=== PATIENT | female | born 1970 | race Caucasian/White ===

== ENCOUNTER 2017-02-08 13:59 | Emergency (ER) | payer BC ==
[~2017-02-08] VITALS: Ht 167.6 cm; Wt 59.9 kg
[2017-02-08] MEDS ORDERED: BENZONATATE 100 MG CAPSULE PO ONE (15:00)
[2017-02-08] MEDS ORDERED: AMPH10CA6 PO (15:04)
[2017-02-08 15:22] LABS: BLOOD UREA NITROGEN 13 mg/dL (7-18)
[2017-02-08 15:23] LABS: ASPARTATE AMINO TRANSFERASE 12 U/L (15-37)
[2017-02-08] MEDS ORDERED: ALBUTEROL SULFATE 2.5 MG/3 ML NPPB ONE (15:30)
[2017-02-08] MEDS ORDERED: ALBUTEROL SULFATE 2.5 MG/3 ML ONE (15:31)
[2017-02-08 16:27] LABS: DIFF TOTAL CELLS COUNTED 100 CELL DIFF
[2017-02-08 16:30] LABS: VERIFY COUNTS? YES
[2017-02-08] MEDS ORDERED: CEFTRIAXONE PMX 1GM/50ML 50 ML IVPB ONE (17:00)
[2017-02-08] MEDS ORDERED: KETOROLAC 30 MG/1 ML IVPush ONE (17:00)
[2017-02-08] MEDS ORDERED: SODIUM CHLORIDE 0.9% 1,000ML IVBOLUS ONE (17:00)
[2017-02-08] MEDS ORDERED: KETOROLAC 30 MG/1 ML ONE (17:17)
[2017-02-08] MEDS ORDERED: CEFTRIAXONE PMX 1GM/50ML 50 ML ONE (17:17)
[2017-02-08 18:15] VITALS: BP 108/57
== END 2017-02-08 18:25 | disposition home or self-care (01) ==
LOC: ED 17:38
DX: J18.9 Pneumonia, unspecified organism (principal); D72.829 Elevated white blood cell count, unspecified
CPT/HCPCS: 36415; 71250; 80053; 85025; 86635; 87040; 87070; 87102; 87205; 93005; 94640; 96365; 96375; 99285; J0696; J1885; J7030; J7613

== ENCOUNTER 2017-02-15 09:04 | Inpatient (IN) | payer BC ==
[~2017-02-15] VITALS: Ht 167.6 cm; Wt 60.0 kg
[~2017-02-15 09:04] MED LIST: AMPH10CA6 PO
[2017-02-15] MEDS ORDERED: AZEL23SP INH (09:30)
[2017-02-15] MEDS ORDERED: AMOX1TAB12 PO (09:30)
[2017-02-15] MEDS ORDERED: FLUC200T4 PO (09:30)
[2017-02-15] MEDS ORDERED: BENZ200C40 PO (09:30)
[2017-02-15] MEDS ORDERED: ALBU8.5H3 INH (09:30)
[2017-02-15] MEDS: ALBUTEROL/IPRATROPIUM 2.5MG/0.5MG, 3 ML NPPB SCH ×2 (09:55→10:07)
[2017-02-15] MEDS ORDERED: ALBUTEROL/IPRATROPIUM 2.5MG/0.5MG, 3 ML ONE ×3 (09:56→18:59)
[2017-02-15] MEDS ORDERED: SODIUM CHLORIDE FLUSH 10ML SYR IVF ONE (10:00)
[2017-02-15 10:32] LABS: ASPARTATE AMINO TRANSFERASE 15 U/L (15-37); BLOOD UREA NITROGEN 11 mg/dL (7-18)
[2017-02-15 10:43] LABS: DIFF TOTAL CELLS COUNTED 100 CELL DIFF
[2017-02-15] MEDS ORDERED: ONDANSETRON 2MG/ML, 2ML ONE (10:49)
[2017-02-15] MEDS ORDERED: MORPHINE SULFATE 4 MG/ML, 1ML ONE ×2 (10:49→13:04)
[2017-02-15] MEDS: MORPHINE SULFATE 4 MG/ML, 1ML IVPush PRN ×2 (10:53→13:06)
[2017-02-15] MEDS ORDERED: ONDANSETRON 2MG/ML, 2ML IVPush ONE (11:00)
[2017-02-15 11:10] LABS: VERIFY COUNTS? YES
[2017-02-15] MEDS ORDERED: SODIUM CHLORIDE 0.9% 1,000ML IVBOLUS ONE ×2 (12:00→14:00)
[2017-02-15] MEDS ORDERED: LEVOFLOXACIN/PMX 750MG/150ML 150 ML ONE (12:22)
[2017-02-15] MEDS ORDERED: LEVOFLOXACIN/PMX 750MG/150ML 150 ML IV ONE (12:30)
[2017-02-15] MEDS ORDERED: LABETALOL 5MG/ML, 20ML IVPush PRN (14:30)
[2017-02-15] MEDS ORDERED: MORPHINE SULFATE 4 MG/ML, 1ML IVPush PRN (14:30)
[2017-02-15] MEDS: ENOXAPARIN 40 MG/0.4 ML SQ SCH (14:30)
[2017-02-15] MEDS ORDERED: LORazepam 1MG TABLET PO PRN (14:30)
[2017-02-15] MEDS ORDERED: HYDROcodone/APAP 5/325 TABLET PO PRN (14:30)
[2017-02-15] MEDS ORDERED: DOCUSATE 100 MG CAPSULE PO PRN (14:30)
[2017-02-15] MEDS ORDERED: ONDANSETRON 2MG/ML, 2ML IVPush PRN (14:30)
[2017-02-15] MEDS ORDERED: VANCOMYCIN PER PHARMACY MC PRN (14:30)
[2017-02-15] MEDS ORDERED: BISACODYL 10 MG SUPP PR PRN (14:30)
[2017-02-15] MEDS ORDERED: POLYETHYLENE GLYCOL 17 GM PACKET PO PRN (14:30)
[2017-02-15] MEDS ORDERED: ONDANSETRON ODT 4 MG PO PRN (14:30)
[2017-02-15] MEDS ORDERED: GUAIFENESIN/DM 100-10MG, 5ML UDC PO PRN (14:30)
[2017-02-15] MEDS ORDERED: VANCOMYCIN 1,200 MG in SODIUM CHLORIDE 0.9% 250 ML IV SCH (15:00)
[2017-02-15] MEDS ORDERED: PHARMACOKINETIC MONITORING MC PRN (15:00)
[2017-02-15] MEDS ORDERED: ALBUTEROL SULFATE 2.5 MG/3 ML ONE (15:18)
[2017-02-15] MEDS: PIPERACILLIN/TAZO/PMX 4.5GM 100 ML IV SCH ×2 (15:48→22:22)
[2017-02-15] MEDS: methylPREDNISolone SOD SUCC 125 MG/2 ML IVPush SCH ×2 (15:49→22:22)
[2017-02-15] MEDS: ACETAMINOPHEN 325 MG TABLET PO PRN (15:52)
[2017-02-15] MEDS ORDERED: GUAIFENESIN 200 MG TABLET PO SCH (16:00)
[2017-02-15 16:05] LABS: HCG UR OBC PASS
[2017-02-15] MEDS: VANCOMYCIN 1,200 MG in SODIUM CHLORIDE 0.9% 250 ML IV SCH (18:08)
[2017-02-15 18:24] LABS: ABG COLLECTION SITE RIGHT RADIAL; COLLATERAL CIRCULATION TESTING NORMAL
[2017-02-15] MEDS: ALBUTEROL SULFATE 2.5 MG/3 ML NPPB SCH (20:00)
[2017-02-15 20:54] VITALS: BP 95/60
[2017-02-15] MEDS: SODIUM CHLORIDE 0.9% 1,000 ML IV SCH (23:22)
[2017-02-16 02:35] VITALS: BP 101/60
[2017-02-16] MEDS: PIPERACILLIN/TAZO/PMX 4.5GM 100 ML IV SCH ×4 (04:36→23:43)
[2017-02-16] MEDS: methylPREDNISolone SOD SUCC 125 MG/2 ML IVPush SCH ×4 (04:36→22:39)
[2017-02-16 05:07] LABS: BLOOD UREA NITROGEN 10 mg/dL (7-18)
[2017-02-16] MEDS: VANCOMYCIN 1,200 MG in SODIUM CHLORIDE 0.9% 250 ML IV SCH ×2 (06:04→18:14)
[2017-02-16] MEDS: ACETAMINOPHEN 325 MG TABLET PO PRN (06:19)
[2017-02-16] MEDS: ALBUTEROL SULFATE 2.5 MG/3 ML NPPB SCH ×4 (06:55→19:34)
[2017-02-16 07:56] VITALS: BP 97/55
[2017-02-16 08:26] VITALS: BP_SYST 94; BP_SYST 95; BP_DIAS 53; BP_DIAS 54
[2017-02-16] MEDS: SODIUM CHLORIDE 0.9% 1,000 ML IV SCH (12:00)
[2017-02-16 13:59] VITALS: BP 94/58
[2017-02-16] MEDS: ENOXAPARIN 40 MG/0.4 ML SQ SCH (14:18)
[2017-02-17] MEDS: methylPREDNISolone SOD SUCC 125 MG/2 ML IVPush SCH ×3 (05:25→22:56)
[2017-02-17] MEDS: PIPERACILLIN/TAZO/PMX 4.5GM 100 ML IV SCH ×3 (05:26→17:53)
[2017-02-17] MEDS: SODIUM CHLORIDE 0.9% 1,000 ML IV SCH (05:27)
[2017-02-17 06:01] LABS: BLOOD UREA NITROGEN 14 mg/dL (7-18)
[2017-02-17 06:10] LABS: DIFF TOTAL CELLS COUNTED 100 CELL DIFF
[2017-02-17 06:12] LABS: VERIFY COUNTS? YES
[2017-02-17] MEDS: VANCOMYCIN 1,200 MG in SODIUM CHLORIDE 0.9% 250 ML IV SCH ×3 (06:25→22:56)
[2017-02-17] MEDS: ALBUTEROL SULFATE 2.5 MG/3 ML NPPB SCH ×4 (06:30→19:43)
[2017-02-17 08:11] VITALS: BP 126/87
[2017-02-17] MEDS: ENOXAPARIN 40 MG/0.4 ML SQ SCH (13:51)
[2017-02-17] MEDS ORDERED: AZITHROMYCIN 500 MG in SODIUM CHLORIDE 0.9% 250 ML IV SCH (16:30)
[2017-02-17 17:58] VITALS: BP 134/76
[2017-02-17 20:27] VITALS: BP 134/78
[2017-02-18] MEDS: PIPERACILLIN/TAZO/PMX 4.5GM 100 ML IV SCH ×2 (00:19→05:45)
[2017-02-18 04:15] VITALS: BP 154/86
[2017-02-18 06:05] LABS: BLOOD UREA NITROGEN 13 mg/dL (7-18)
[2017-02-18] MEDS: ALBUTEROL SULFATE 2.5 MG/3 ML NPPB SCH ×2 (07:00→11:00)
[2017-02-18] MEDS: methylPREDNISolone SOD SUCC 125 MG/2 ML IVPush SCH (07:32)
[2017-02-18 07:40] VITALS: BP 147/93
[2017-02-18] MEDS ORDERED: PNEUMOCOCCAL 23 VACCINE IM-VACC ONE (10:00)
[2017-02-18] MEDS: VANCOMYCIN 1,200 MG in SODIUM CHLORIDE 0.9% 250 ML IV SCH (10:08)
[2017-02-18] MEDS ORDERED: PRED20TA PO (10:25)
[2017-02-18] MEDS ORDERED: AZIT250T89 PO (10:26)
[2017-02-18] MEDS ORDERED: AZITHROMYCIN 500 MG TABLET PO ONE (10:30)
== END 2017-02-18 11:49 | disposition home or self-care (01) | DRG 871 ==
LOC: ED 10:51 → EDIP 12:18 → 3NE 13:57
PROVIDERS: ADMIT Internal Medicine; ATTEND Internal Medicine
DX: A41.9 Sepsis, unspecified organism (principal); J96.01 Acute respiratory failure with hypoxia; J18.1 Lobar pneumonia, unspecified organism; E44.1 Mild protein-calorie malnutrition; E73.9 Lactose intolerance, unspecified; K21.9 Gastro-esophageal reflux disease without esophagitis; F98.8 Other specified behavioral and emotional disorders with onset usually occurring in childhood and adolescence; R91.1 Solitary pulmonary nodule; J45.909 Unspecified asthma, uncomplicated; T38.0X5A Adverse effect of glucocorticoids and synthetic analogues, initial encounter; R73.9 Hyperglycemia, unspecified; Z79.899 Other long term (current) drug therapy; Z98.51 Tubal ligation status; Z88.2 Allergy status to sulfonamides; Z91.09 Other allergy status, other than to drugs and biological substances; Z68.21 Body mass index [BMI] 21.0-21.9, adult
CPT/HCPCS: 36415; 36600; 71010; 80048; 80053; 80202; 81003; 81025; 82803; 83605; 84145; 85025; 87040; 87070; 87205; 90732; 93005; 93306; 94640; 96361; 96365; 96375; 96376; J0456; J1650; J1956; J2405; J2543; J3370; J7613; J7620; J2930; J7030; J7050

== ENCOUNTER → 2017-03-22 | Outpatient (CLI) | payer BC ==
[~2017-03-22] MED LIST changes: +ALBU8.5H3 INH; +AMOX1TAB12 PO; +AZEL23SP INH; +AZIT250T89 PO; +BENZ200C40 PO; +FLUC200T4 PO; +PRED20TA PO
== END | disposition home or self-care (01) ==
LOC: CFH 12:03
PROVIDERS: ATTEND Internal Medicine Critical Care Medicine
DX: J18.9 Pneumonia, unspecified organism (principal); N20.0 Calculus of kidney; R91.1 Solitary pulmonary nodule
CPT/HCPCS: 71250